=== PATIENT | male | born 1975 | race Two or more races ===

== ENCOUNTER 2017-07-30 17:20 | Emergency (ER) | payer SELFPAY ==
[~2017-07-30] VITALS: Ht 162.6 cm; Wt 72.6 kg
[2017-07-30 17:34] VITALS: BP 125/78
[2017-07-30] MEDS ORDERED: Methocarbamol 500mg tab ORAL ONE (18:00)
[2017-07-30] MEDS ORDERED: IBUPROFEN600 MG ORAL (18:04)
[2017-07-30] MEDS ORDERED: METHOCARBAMOL500 MG ORAL (18:04)
--- NOTE | 2017-07-30 18:04 | Emergency Room Report ---
History of Present Illness General Chief Complaint: Upper Extremity Injury Source: Patient Present Illness HPI 41-year-old male patient presents ER complaining of left shoulder pain for the past 2 weeks and numbness in his finger since this morning. Reports that pain is worse with movement. 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 Denies symptoms in other arm. Denies history of diabetes. Denies history of cardiovascular disease. Denies chest pain, shortness breath, abdominal pain. Reports has been working during these past 2 weeks and symptoms seem to be worse after work. denies acute trauma. reports right-hand dominant. Allergies: Coded Allergies: No Known Allergies (Unverified , 07/30/17) Patient History Past Medical History: see triage record Reviewed Nursing Documentation: PMH: Agreed; PSxH: Agreed Nursing Documentation-PMH Past Medical History: No Stated History Review of Systems All Other Systems: negative except mentioned in HPI Physical Exam Vital Signs Date Time Temp Pulse Resp B/P (MAP) Pulse Ox O2 Delivery O2 Flow Rate FiO2 07/30/17 17:23 98.1 73 18 125/78 96 Room Air 98.1 Sp02 EP Interpretation: reviewed, normal General Appearance: well appearing, no apparent distress, alert, GCS 15, non- toxic Head: normocephalic, atraumatic Eyes: bilateral eye normal inspection, bilateral eye PERRL ENT: hearing grossly normal, normal pharynx, no angioedema, normal voice, uvula midline, moist mucus membranes Neck: full range of motion Respiratory: lungs clear, normal breath sounds, no rhonchi, no respiratory distress, no accessory muscle use, no wheezing, speaking full sentences Cardiovascular #1: regular rate, rhythm, no edema Cardiovascular #2: 2+ radial (R), 2+ radial (L) Musculoskeletal: back normal, digits/nails normal, gait/station normal, normal range of motion, non-tender, other - left shoulder: negative Adson tests, negative drop arm, positive Price, negative belly press Neurologic: alert, oriented x3, responsive, motor strength/tone normal, sensory intact Psychiatric: mood/affect normal Skin: no rash Medical Decision Making PA Attestation Dr. Woo is my supervising Physician whom patient management has been discussed with. Diagnostic Impression: Primary Impression: Shoulder pain Additional Impression: Numbness and tingling in left hand ER Course Pt. presents to the ED c/o left shoulder pain and hand numbness. Ddx considered but are not limited to fracture, sprain, strain, contusion, dislocation, nerve impingement. no history of cancer or drug use, no hormone medication, low suspicion for DVT at this time. Vital signs: are WNL, pt. is afebrile Ordered X-ray and pain medication. ER COURSE Provided with pain medication. physical exam shows Refill less than 2 seconds, negative Adson test, NVI, radial pulses 2+. no recent trauma, full range of motion of arm, patient does not require imaging at this time. Low suspicion for fracture. Positive Price test, likely rotator cuff impingement or tendinitis causing symptoms. Take ibuprofen and muscle relaxant for pain. reports pain with relief with holding left arm up hand resting on right shoulder. Will provide patient with sling. Instructed patient to perform range of motion exercises to prevent stiffness. Patient instructed on RICE method: rest, ice, compression, elevation. Followup with primary care provider. Discuss referral to ortho/pain management/ PT as needed. Discuss further imaging with MRI/CT as needed. ER precautions given. DISCHARGE: -Rx provided for Ibuprofen for pain symptoms. -Rx provided for Methocarbamol. SE drowsiness, do not drink, drive, or operate heavy machinery while using. At this time pt. is stable for d/c to home. Patient is resting comfortably, in no acute distress, nontoxic appearing, talking without difficulty. Will provide printed patient care instructions, and any necessary prescriptions. Patient instructed to follow with primary care provider in 3 - 5 days and to request further follow-up as needed. Care plan and follow up instructions have been discussed with the patient prior to discharge. Take medications as directed. Patient questions asked and answered. Patient reports understanding and agreement to treatment plan. ER precautions given, patient instructed to return to ER immediately for any new or worsening of symptoms. - Please note that this Emergency Department Report was dictated using [employer] ranger technology software, occasionally this can lead to erroneous entry secondary to interpretation by the dictation equipment. Last Vital Signs Date Time Temp Pulse Resp B/P (MAP) Pulse Ox O2 Delivery O2 Flow Rate FiO2 07/30/17 17:34 98.1 80 18 125/78 96 Room Air 98.1 Disposition: HOME, SELF-CARE Condition: Stable Scripts Ibuprofen* (MOTRIN*) 600 Mg Tablet 600 MG ORAL Q8H PRN for For Pain, #30 TAB 0 Refills Prov: Jack Mcpherson 07/30/17 Methocarbamol* (METHOCARBAMOL*) 500 Mg Tablet 500 MG ORAL TID PRN for For Pain, #15 TAB 0 Refills Prov: Jack Mcpherson 07/30/17 Patient Instructions: Generic Shoulder Exercises-SportsMed, Rotator Cuff Tendinitis, Shoulder Pain, [id number] Additional Instructions: Patient instructed to follow up with primary care provider and discuss further referral to orthopedics. Discuss referral to the physical therapy and neurology as needed. Patient instructed on RICE method: rest, ice, compression, elevation. Patient instructed to WBAT. Take medications as directed. Patient questions asked and answered. ER precautions given, patient instructed to return to ER immediately for any new or worsening of symptoms. Jack Mcpherson Jul 30, 2017 18:04
[2017-07-30 18:17] VITALS: BP 125/78
== END 2017-07-30 18:30 | disposition home or self-care (01) ==
LOC: EMR 18:16
DX: M25.512 Pain in left shoulder (principal); R20.2 Paresthesia of skin; R20.0 Anesthesia of skin
CPT/HCPCS: 99284